=== PATIENT | female | born 1970 | race Caucasian/White ===

== ENCOUNTER 2019-11-01 22:48 | Emergency (ER) | payer OTHER ==
--- NOTE | 2019-11-01 22:52 | ERPHSYRPT ---
- History of Present Illness Time Seen by Provider: 11/01/19 22:52 Source: patient Exam Limitations: no limitations Physician History: 48 y/o white female with h/o generalized body aches, fibromyalgia, anxiety, and hypothyroid. pt was seen by pcp 4 weeks ago. sent to see a protozoologist 2 weeks ago and found to have bp 140s/101. she has been watching and bp has been going up. no h/o htn. pt stepped on something today and now has right foot pain. pt has h/o stress fx in feet. two concerns for pt, elevated bp and right foot pain. pt has vicodin at home for chronic pain issues. Timing/Duration: week(s) (2) Severity: moderate Modifying Factors: Improves With: movement Associated Symptoms: denies symptoms, No chest pain, No headaches Allergies/Adverse Reactions: alprazolam [From Xanax] Allergy (Verified 11/01/19 23:16) iron Allergy (Verified 11/01/19 23:16) Penicillins Allergy (Verified 11/01/19 23:16) Home Medications: Levothyroxine Sodium 125 mcg PO DAILY 01/19/15 [History] Omeprazole 40 mg PO DAILY 01/19/15 [History] Escitalopram Oxalate [Lexapro] 20 mg PO DAILY 11/01/19 [History] Hx Tetanus, Diphtheria Vaccination/Date Given: Yes (unknown) Hx Influenza Vaccination/Date Given: Yes Hx Pneumococcal Vaccination/Date Given: No - Review of Systems Constitutional: No Symptoms Eyes: No Symptoms Ears, Nose, & Throat: No Symptoms Respiratory: No Symptoms Cardiac: No Symptoms Abdominal/Gastrointestinal: No Symptoms Genitourinary Symptoms: No Symptoms Musculoskeletal: Arthralgias, Injury (right foot), Myalgias Skin: No Symptoms Neurological: No Symptoms Psychological: No Symptoms Endocrine: No Symptoms Hematologic/Lymphatic: No Symptoms Immunological/Allergic: No Symptoms All Other Systems: Reviewed and Negative - Past Medical History Pertinent Past Medical History: Yes Neurological History: Migraines ENT History: No Pertinent History Cardiac History: Other Respiratory History: Asthma Endocrine Medical History: Other Musculoskeletal History: Fibromyalgia GI Medical History: GERD, Irritable Bowel History: No Pertinent History Psycho-Social History: Anxiety, Depression Female Reproductive Disorders: Menstrual Problems Other Medical History: thyroid cancer - Past Surgical History Past Surgical History: Yes Neuro Surgical History: No Pertinent History Cardiac: No Pertinent History Respiratory: No Pertinent History Gastrointestinal: Cholecystectomy Genitourinary: No Pertinent History Musculoskeletal: No Pertinent History Female Surgical History: Tubal Ligation Other Surgical History: tyroidectomy - Social History Smoking Status: Never smoker Exposure to second hand smoke: No Drug Use: marijuana Patient Lives Alone: No - Nursing Vital Signs Nursing Vital Signs: Initial Vital Signs Temperature 98.1 F 11/01/19 23:00 Pulse Rate 104 H 11/01/19 23:00 Respiratory Rate 16 11/01/19 23:00 Blood Pressure 173/118 11/01/19 23:00 O2 Sat by Pulse Oximetry 96 11/01/19 23:00 Pain Scale Pain Intensity [Right Foot] 7 Pain Intensity 7 - Physical Exam General Appearance: no apparent distress, alert, anxiety Eye Exam: PERRL/EOMI, eyes nml inspection Ears, Nose, Throat Exam: normal ENT inspection, moist mucous membranes Neck Exam: normal inspection, non-tender, supple, full range of motion Respiratory Exam: normal breath sounds, lungs clear, airway intact, No chest tenderness, No respiratory distress Cardiovascular Exam: regular rate/rhythm, normal heart sounds, normal peripheral pulses Gastrointestinal/Abdomen Exam: soft, normal bowel sounds, tenderness Pelvic Exam: not done Rectal Exam: not done Extremity Exam: normal inspection, normal range of motion, pelvis stable Neurologic Exam: alert, oriented x 3, cooperative Skin Exam: normal color, warm, dry Lymphatic Exam: No adenopathy SpO2 Interpretation: normal O2 Delivery: Room Air Ordered Tests: Active Orders 24 hr Category Date Time Status IV Insertion STAT Care 11/01/19 23:11 Active Pulse Oximetry (ED) STAT Care 11/01/19 23:11 Active FOOT (MINIMUM 3 VIEWS) Stat Exams 11/01/19 23:10 Taken BMP Stat Lab 11/01/19 23:11 Completed CBC W DIFF Stat Lab 11/01/19 23:11 Completed Medication Summary Discontinued Medications Generic Name Dose Route Start Last Admin Trade Name Freq PRN Reason Stop Dose Admin Enalaprilat 0.625 mg 11/01/19 23:11 11/01/19 23:26 Vasotec I.V. 2.5 Mg IV 11/01/19 23:12 0.625 mg STAT ONE Administration Enalaprilat Confirm 11/01/19 23:24 Vasotec I.V. 2.5 Mg Administered 11/01/19 23:25 Dose 2.5 mg IV .STK-MED ONE Lab/Rad Data: Laboratory Result Diagrams 11/01/19 23:11 11/01/19 23:11 Laboratory Results 11/01/19 11/01/19 Range/Units 23:11 23:11 WBC 9.6 (4.0-10.5) K/mm3 RBC 4.34 (4.1-5.4) M/mm3 Hgb 13.7 (12.0-16.0) gm/dl Hct 39.7 (35-47) % MCV 91.5 (78-100) fl MCH 31.6 (26-32) pg MCHC 34.5 (32-36) g/dl RDW 12.2 (11.5-14.0) % Plt Count 250 (150-450) K/mm3 MPV 11.5 H (6-9.5) fl Gran % 64.7 (36.0-66.0) % Eos # (Auto) 0.23 (0-0.5) Absolute Lymphs (auto) 2.35 (1.0-4.6) Absolute Monos (auto) 0.77 (0.0-1.3) Lymphocytes % 24.6 (24.0-44.0) % Monocytes % 8.1 (0.0-12.0) % Eosinophils % 2.4 (0.00-5.0) % Basophils % 0.2 (0.0-0.4) % Absolute Granulocytes 6.18 (1.4-6.9) Basophils # 0.02 (0-0.4) Sodium 141 (137-145) mmol/L Potassium 3.5 (3.5-5.1) mmol/L Chloride 103 (98-107) mmol/L Carbon Dioxide 29 (22-30) mmol/L Anion Gap 13.1 (5-15) MEQ/L BUN 10 (7-17) mg/dL Creatinine 0.68 (0.52-1.04) mg/dL Estimated GFR > 60.0 ML/MIN Glucose 120 H (74-106) mg/dL Calcium 9.5 (8.4-10.2) mg/dL - Progress Progress: unchanged Progress Note: 11/02/19 00:09 right foot xray-no acute fx or dislocation Counseled pt/family regarding: lab results, diagnosis, need for follow-up, rad results - Departure Departure Disposition: Home Clinical Impression: Foot pain, Hypertension Condition: Stable Critical Care Time: No Referrals: CHAPARRO DELGADO MD [Primary Care Provider] - Additional Instructions: use your narcotic pain medicine at home as prescribed. follow up with your primary doctor for high blood pressure issues as well as pain control issues. follow up with pain specialist for pain control issues. Prescriptions: Hydrochlorothiazide 25 mg [hydroDIURIL 25 MG] 25 mg PO DAILY #10 tablet
[2019-11-01] MEDS ORDERED: VASOTEC I.V. 2.5 MG IV ONE ×2 (23:11→23:24)
[2019-11-01 23:40] LABS: Absolute Neutrophil Ct (ANC) 6.18 (1.4-6.9); BASOPHIL % 0.2 % (0.0-0.4); Basophil (Absolute #) 0.02 (0-0.4); Eosinophil % 2.4 % (0.00-5.0); Eosinophil (Absolute #) 0.23 (0-0.5); Hematocrit 39.7 % (35-47); Hemoglobin 13.7 gm/dl (12.0-16.0); Lymphocyte (Absolute #) 2.35 (1.0-4.6); Lymphocytes % 24.6 % (24.0-44.0); Mean Cell Volume 91.5 fl (78-100); Mean Corpuscular Hemoglobin 31.6 pg (26-32); Mean Corpuscular Hgb Concent. 34.5 g/dl (32-36); Mean Platelet Volume 11.5 fl (6-9.5); Monocyte (Absolute #) 0.77 (0.0-1.3); Monocytes % 8.1 % (0.0-12.0); Neutrophil % 64.7 % (36.0-66.0); Platelet Count 250 K/mm3 (150-450); Red Blood Count 4.34 M/mm3 (4.1-5.4); Red Cell Distribution Width 12.2 % (11.5-14.0); White Blood Count 9.6 K/mm3 (4.0-10.5)
[2019-11-01 23:52] LABS: ANION GAP 13.1 MEQ/L (5-15); BLOOD UREA NITROGEN 10 mg/dL (7-17); CHLORIDE 103 mmol/L (98-107); Calcium 9.5 mg/dL (8.4-10.2); Carbon Dioxide 29 mmol/L (22-30); Creatinine 1 0.68 mg/dL (0.52-1.04); Glucose 120 mg/dL (74-106); Potassium 3.5 mmol/L (3.5-5.1); SODIUM 141 mmol/L (137-145)
[2019-11-02 00:09] VITALS: BP 140/91; PULSE 91; O2SAT 96
--- NOTE | 2019-11-02 09:18 | XRAY ---
Indication: 3rd-5th MTP pain. Comparison: None 3 nonweightbearing views of the right foot demonstrates small navicular accessory ossicle. No other bony, articular, or soft tissue abnormalities.
== END 2019-11-02 00:28 | disposition home or self-care (01) ==
LOC: ED 22:48
DX: M79.671 Pain in right foot (principal); Z79.891 Long term (current) use of opiate analgesic; G89.29 Other chronic pain; M79.7 Fibromyalgia; E03.9 Hypothyroidism, unspecified; R03.0 Elevated blood-pressure reading, without diagnosis of hypertension
CPT/HCPCS: 36000; 36415; 73630; 80048; 85025; 94760; 96374; 99284

== ENCOUNTER 2020-09-28 23:38 | Emergency (ER) | payer OTHER ==
--- NOTE | 2020-09-28 23:44 | ERPHSYRPT ---
- History of Present Illness Time Seen by Provider: 09/28/20 23:44 Source: patient Exam Limitations: no limitations Physician History: This is a 49-year-old white female who states that she has a very itchy right inner ear. She has had Q-tip cotton stuck in it before. There is a Q-tip cotton stuck in right ear canal for approximately 2 to 3 days per her report. In addition, she has left upper molar pain. Patient has been unable to retrieve the Q-tip on her own. Patient has taken Keflex before without any problems. Timing/Duration: gradual onset Severity: mild ENT Location: ear (R) Associated Symptoms: ear pain (R), tooth pain (Left upper molar) Allergies/Adverse Reactions: alprazolam [From Xanax] Allergy (Verified 09/28/20 23:55) iron Allergy (Verified 09/28/20 23:55) Penicillins Allergy (Verified 09/28/20 23:55) erythromycin base Adverse Reaction (Verified 09/28/20 23:55) nausea Home Medications: Levothyroxine Sodium 125 mcg PO DAILY 01/19/15 [History] Omeprazole 40 mg PO DAILY 01/19/15 [History] Escitalopram Oxalate [Lexapro] 20 mg PO DAILY 11/01/19 [History] Gabapentin [Neurontin] 100 mg PO BID 09/29/20 [History] Indomethacin 25 mg [Indocin 25 MG] 25 mg PO TID 09/29/20 [History] Naproxen 500 mg [Naprosyn 500 MG] 500 mg PO BID 09/29/20 [History] Sumatriptan Succinate 25 mg [Imitrex 25 MG] 25 mg PO DAILY PRN PRN 09/29/20 [History] Hx Tetanus, Diphtheria Vaccination/Date Given: Yes (unknown) Hx Influenza Vaccination/Date Given: Yes Hx Pneumococcal Vaccination/Date Given: No Travel Risk - International Travel Have you traveled outside of the country in past 3 weeks: No - Coronavirus Screening Are you exhibiting any of the following symptoms?: No Close contact with a COVID-19 positive Pt in past 14-21 Days: No - Review of Systems Constitutional: No Symptoms Eyes: No Symptoms Ears, Nose, & Throat: Ear Pain (right) Respiratory: No Symptoms Cardiac: No Symptoms Abdominal/Gastrointestinal: No Symptoms Genitourinary Symptoms: No Symptoms Musculoskeletal: No Symptoms Skin: No Symptoms Neurological: No Symptoms Psychological: No Symptoms Endocrine: No Symptoms Hematologic/Lymphatic: No Symptoms Immunological/Allergic: No Symptoms All Other Systems: Reviewed and Negative - Past Medical History Pertinent Past Medical History: Yes Neurological History: Migraines ENT History: No Pertinent History Cardiac History: Other Respiratory History: Asthma Endocrine Medical History: Other Musculoskeletal History: Fibromyalgia GI Medical History: GERD, Irritable Bowel History: No Pertinent History Psycho-Social History: Anxiety, Depression Female Reproductive Disorders: Menstrual Problems Other Medical History: thyroid cancer - Past Surgical History Past Surgical History: Yes Neuro Surgical History: No Pertinent History Cardiac: No Pertinent History Respiratory: No Pertinent History Gastrointestinal: Cholecystectomy Genitourinary: No Pertinent History Musculoskeletal: No Pertinent History Female Surgical History: Tubal Ligation Other Surgical History: tyroidectomy - Social History Smoking Status: Never smoker Exposure to second hand smoke: No Drug Use: marijuana Patient Lives Alone: No - Nursing Vital Signs Nursing Vital Signs: Initial Vital Signs Temperature 98.5 F 09/28/20 23:39 Pulse Rate 72 09/28/20 23:39 Respiratory Rate 16 09/28/20 23:39 Blood Pressure 173/98 09/28/20 23:39 O2 Sat by Pulse Oximetry 98 09/28/20 23:39 Pain Scale Pain Intensity 6 - Physical Exam General Appearance: no apparent distress, alert, anxiety Eye Exam: bilateral eye: normal inspection, PERRL, EOMI Ear Exam: right ear: erythema, foreign body, tenderness, left ear: auricle nor mal, canal normal, TM normal Nasal Exam: normal inspection Throat Exam: normal, pharynx normal, dental tenderness (Left upper molar), moist mucus membranes Neck Exam: normal inspection, non-tender, supple, full range of motion, trachea midline Cardiovascular/Respiratory Exam: chest non-tender, no respiratory distress Abdominal Exam: non-tender Neurologic Exam: alert, oriented x 3, cooperative, chrome cleaner II-XII nml as tested, normal mood/affect, nml cerebellar function, nml station & gait, sensation nml Skin Exam: normal color, warm, dry SpO2 Interpretation: normal O2 Delivery: Room Air Procedures - Additional Procedures Progress: Procedure note: Attempted to remove the visible foreign body (tip of cotton Q- tip) from the right ear canal. The ear canal is very swollen and I was unable to remove this safely. Therefore we attempted to irrigate the ear canal out and this did not help and retrieving the Q-tip. - Course Nursing assessment & vital signs reviewed: Yes Ordered Tests: Medication Summary Discontinued Medications Generic Name Dose Route Start Last Admin Trade Name Vira PRN Reason Stop Dose Admin Hydrocodone Bitart/Acetaminophen 1 tab 09/29/20 00:47 Colon 5/325 Mg PO 09/29/20 00:48 STAT ONE Ceftriaxone Sodium 1,000 mg 09/29/20 00:45 Rocephin 1000 Mg Inj IM 09/29/20 00:46 STAT ONE Methylprednisolone Sodium Succinate 125 mg 09/29/20 00:46 Solu-Medrol 125 Mg IM 09/29/20 00:47 STAT ONE - Progress Progress: unchanged Counseled pt/family regarding: diagnosis, need for follow-up - Departure Departure Disposition: Home Clinical Impression: Acute foreign body of right ear canal Condition: Stable Critical Care Time: No Referrals: CHAPARRO DELGADO MD [Primary Care Provider] - Additional Instructions: Follow-up with emergency department today or tomorrow that has ear nose and throat coverage. Take the antibiotic as prescribed. Prescriptions: Cephalexin Mh 500 mg [Keflex 500 mg] 500 mg PO TID #21 capsule
[2020-09-29] MEDS ORDERED: Rocephin 1000 MG INJ IM ONE (00:45)
[2020-09-29] MEDS ORDERED: solu-MEDROL 125 MG IM ONE (00:46)
[2020-09-29] MEDS ORDERED: NORCO 5/325 MG PO ONE (00:47)
[2020-09-29] MEDS ORDERED: NORCO 5/325 MG ONE (00:56)
[2020-09-29] MEDS ORDERED: solu-MEDROL 125 MG ONE (00:57)
[2020-09-29] MEDS ORDERED: Rocephin 1000 MG INJ ONE (00:57)
[2020-09-29] MEDS ORDERED: XYLOCAINE 1% HCL 20 ML MDV ONE (00:58)
[2020-09-29 01:37] VITALS: BP 164/80; PULSE 88; O2SAT 97
== END 2020-09-29 01:30 | disposition home or self-care (01) ==
LOC: ED 23:38
DX: T16.1XXA Foreign body in right ear, initial encounter (principal)
CPT/HCPCS: 69200; 96372; 99284; J0696; J2930; A9270-GY

== ENCOUNTER 2020-11-07 12:15 | Day surgery (SDC) | payer OTHER ==
[2013-08-24 13:25] VITALS: BP 132/83
[2020-11-07] MEDS ORDERED: Sodium Chloride 0.9(Preservative Free) 10 ML IJ ONE (12:16)
[2020-11-07] MEDS ORDERED: Xylocaine 1% Vial 30 ML PF IJ ONE (12:16)
[2020-11-07] MEDS ORDERED: Depo-Medrol 40 MG/ML IM ONE (12:16)
[2020-11-07] MEDS ORDERED: Ketamine HCl 50 MG/ML ONE (14:04)
[2020-11-07] MEDS ORDERED: DIPRIVAN 200 MG/20 ML IV ONE (14:04)
--- NOTE | 2020-11-07 15:16 | XRAY ---
Indication: Lumbar PRINCESS. Intraoperative fluoroscopy was provided for 22 seconds. 2 digital spot images submitted for interpretation demonstrates midline posterior needle tip projecting just posterior to the L4-L5 interspace. Small amount of contrast injected for needle tip placement. Correlate with intraoperative findings/report.
[2020-11-07] MEDS ORDERED: Lactated Ringers 1,000 ML IV ONE (15:30)
--- NOTE | 2020-11-07 17:18 | XRAY ---
22 seconds fluoroscopy time in surgery for lumbar PRINCESS.
== END 2020-11-07 14:31 | disposition home or self-care (01) ==
LOC: SDC-PAIN 12:15
PROVIDERS: ATTEND Psychiatry & Neurology Pain Medicine
DX: M54.16 Radiculopathy, lumbar region (principal); J45.909 Unspecified asthma, uncomplicated; D64.9 Anemia, unspecified; K21.9 Gastro-esophageal reflux disease without esophagitis; M79.7 Fibromyalgia; Z79.899 Other long term (current) drug therapy
CPT/HCPCS: 62323; 72100; 77003; J1030; J2001; J2704; Q9966

== ENCOUNTER 2021-04-24 15:19 | Day surgery (SDC) | payer OTHER ==
[2013-08-24 13:25] VITALS: BP 132/83
[2021-04-24] MEDS ORDERED: Depo-Medrol 40 MG/ML IM ONE (15:20)
[2021-04-24] MEDS ORDERED: BUPIVACAINE 0.5% VIAL IJ ONE (15:20)
[2021-04-24] MEDS ORDERED: Decadron 4 MG INJ IV ONE (15:20)
[2021-04-24] MEDS ORDERED: Sodium Chloride 0.9(Preservative Free) 10 ML IJ ONE (15:20)
[2021-04-24] MEDS ORDERED: Xylocaine 1% Vial 30 ML PF IJ ONE (15:20)
[2021-04-24] MEDS ORDERED: Lactated Ringers 1,000 ML IV ONE (16:22)
[2021-04-24] MEDS ORDERED: DIPRIVAN 200 MG/20 ML IV ONE (17:07)
--- NOTE | 2021-04-24 17:41 | XRAY ---
9 seconds of fluoroscopy was used in surgery for a left SI injection.
--- NOTE | 2021-04-24 17:41 | XRAY ---
Indication: Left SI joint injection. Intraoperative fluoroscopy provided for 9 seconds. 2 digital spot images submitted for interpretation demonstrates posterior needle tip projecting over the inferior left SI joint. Correlate with intraoperative findings/report.
== END 2021-04-24 17:36 | disposition home or self-care (01) ==
LOC: SDC-PAIN 15:19
PROVIDERS: ATTEND Psychiatry & Neurology Pain Medicine
DX: M46.1 Sacroiliitis, not elsewhere classified (principal); M65.841 Other synovitis and tenosynovitis, right hand; J45.909 Unspecified asthma, uncomplicated; D64.9 Anemia, unspecified; C73 Malignant neoplasm of thyroid gland; G43.909 Migraine, unspecified, not intractable, without status migrainosus; K21.9 Gastro-esophageal reflux disease without esophagitis; M79.7 Fibromyalgia; M19.90 Unspecified osteoarthritis, unspecified site; Z79.899 Other long term (current) drug therapy
CPT/HCPCS: 20550; 27096; 72020; 77002; G0260; J1030; J1100; J2001; J2704

== ENCOUNTER 2021-05-09 22:11 | Emergency (ER) | payer OTHER ==
--- NOTE | 2021-05-09 22:49 | ERPHSYRPT ---
- History of Present Illness Time Seen by Provider: 05/09/21 22:30 Source: patient Exam Limitations: no limitations Patient Subjective Stated Complaint: "I have family that are COVID + and I've been feeling bad." Triage Nursing Assessment: Patient reported recent exposure to individuals with COVID and experiencing sinus congestion, headache, and cough. Reported tightness around her collar bone and between her scapulas. Denied chest pain, shortness of breath, dizziness, or visual/auditory disturbances. Pupils 3mm bilateral. Oral mucosa pink/moist. Neck supple without lymphadenopathy. Symmetrical chest expansion. heart tones S1/S2 regular rate and rhythm. Lungs vesicular with adequate airflow and without adventitious lung sounds. Peripheral pulses +3 bilateral. Gait steady without complications. Physician History: Patient is a 50-year-old female presents to our ED with complaints of generalized body aches and occasional dry cough nasal congestion. Patient concerned that she may have Covid. Patient states she was exposed to Covid over the past couple days. Patient shared an ice cream with a family member who is Covid positive. No other symptoms. No nausea or vomiting. No diarrhea no diaphoresis no rash. No shortness of breath. No chest pain. Patient states that she felt worse earlier which is what prompted her to come in here. Patient symptoms have significantly improved. Patient states she feels fine at this time. Patient requesting outpatient Covid test. She does not want further testing done at this time. Patient will self quarantine. Timing/Duration: today Severity: mild Modifying Factors: Improves With: nothing Associated Symptoms: denies symptoms, No heartburn, No cough, No chest pain, No fever, No loss of appetite, No syncope, No weakness Allergies/Adverse Reactions: alprazolam [From Xanax] Allergy (Verified 05/09/21 22:18) iron Allergy (Verified 05/09/21 22:18) Penicillins Allergy (Verified 05/09/21 22:18) erythromycin base Adverse Reaction (Verified 05/09/21 22:18) nausea Home Medications: Levothyroxine Sodium 88 mcg PO DAILY 01/19/15 [History] Omeprazole 40 mg PO DAILY 01/19/15 [History] Escitalopram Oxalate [Lexapro] 20 mg PO DAILY 11/01/19 [History] Gabapentin [Neurontin] 300 mg PO BID 09/29/20 [History] Indomethacin 25 mg [Indocin 25 MG] 25 mg PO TID PRN 09/29/20 [History] Sumatriptan Succinate 25 mg [Imitrex 25 MG] 25 mg PO DAILY PRN PRN 09/29/20 [History] Gabapentin 2 tab PO BID 05/09/21 [History] Lisinopril/Hydrochlorothiazide [Lisinopril-Hctz 10-12.5 mg Tab] 1 tab PO DAILY 05/09/21 [History] Hx Tetanus, Diphtheria Vaccination/Date Given: Yes (unknown) Hx Influenza Vaccination/Date Given: Yes Hx Pneumococcal Vaccination/Date Given: No Travel Risk - International Travel Have you traveled outside of the country in past 3 weeks: No - Coronavirus Screening Are you exhibiting any of the following symptoms?: Yes Symptoms: Fever, Cough: New Onset, Vomiting/Diarrhea, Headaches/Body Aches/Fatigue Close contact with a COVID-19 positive Pt in past 14-21 Days: Yes - Vaccine Status Have you recieved a Covid-19 vaccination: No - Review of Systems Constitutional: No Symptoms, No Fever, No Chills Eyes: No Symptoms Ears, Nose, & Throat: No Symptoms Respiratory: No Symptoms, No Cough, No Dyspnea Cardiac: No Symptoms, No Chest Pain, No Edema, No Syncope Abdominal/Gastrointestinal: No Symptoms, No Abdominal Pain, No Nausea, No Vomiting, No Diarrhea Genitourinary Symptoms: No Symptoms, No Dysuria Musculoskeletal: No Symptoms, No Back Pain, No Neck Pain Skin: No Symptoms, No Rash Neurological: No Symptoms, No Dizziness, No Focal Weakness, No Sensory Changes Psychological: No Symptoms Endocrine: No Symptoms Hematologic/Lymphatic: No Symptoms Immunological/Allergic: No Symptoms All Other Systems: Reviewed and Negative - Past Medical History Pertinent Past Medical History: Yes Neurological History: Migraines ENT History: No Pertinent History Cardiac History: Other Respiratory History: Asthma Endocrine Medical History: Other Musculoskeletal History: Fibromyalgia GI Medical History: GERD, Irritable Bowel History: No Pertinent History Psycho-Social History: Anxiety, Depression, Other Female Reproductive Disorders: Menstrual Problems Other Medical History: Mitral valve prolapse, thyroid cancer, PTSD - Past Surgical History Past Surgical History: Yes Neuro Surgical History: No Pertinent History Cardiac: No Pertinent History Respiratory: No Pertinent History Gastrointestinal: Cholecystectomy Genitourinary: No Pertinent History Musculoskeletal: No Pertinent History Female Surgical History: Hysterectomy, Tubal Ligation Other Surgical History: tyroidectomy - Social History Smoking Status: Never smoker Exposure to second hand smoke: No Drug Use: marijuana Patient Lives Alone: No - Female History Hx Now: No - Nursing Vital Signs Nursing Vital Signs: Initial Vital Signs Temperature 98.7 F 05/09/21 22:11 Pulse Rate 83 05/09/21 22:11 Respiratory Rate 18 05/09/21 22:11 Blood Pressure 127/80 05/09/21 22:11 O2 Sat by Pulse Oximetry 99 05/09/21 22:11 Pain Scale Pain Intensity 5 - Physical Exam General Appearance: no apparent distress, alert Eye Exam: PERRL/EOMI, eyes nml inspection Ears, Nose, Throat Exam: normal ENT inspection, TMs normal, pharynx normal, mois t mucous membranes Neck Exam: normal inspection, non-tender, supple, full range of motion Respiratory Exam: normal breath sounds, lungs clear, airway intact, No respiratory distress Cardiovascular Exam: regular rate/rhythm, normal heart sounds, normal peripheral pulses Gastrointestinal/Abdomen Exam: soft, normal bowel sounds, No tenderness, No mass Back Exam: normal inspection, normal range of motion, No CVA tenderness, No vertebral tenderness Extremity Exam: normal inspection, normal range of motion, pelvis stable Neurologic Exam: alert, oriented x 3, cooperative, normal mood/affect, sensation nml, No motor deficits Skin Exam: normal color, warm, dry, No rash Lymphatic Exam: No adenopathy SpO2 Interpretation: normal SpO2: 99 O2 Delivery: Room Air - Course Nursing assessment & vital signs reviewed: Yes - Progress Progress: improved Progress Note: Patient states she feels much better now versus when she decided to come to the ED. Patient states "I overreacted". Physical exam unremarkable. Vitals stable. Patient is not hypoxic or tachypneic. Lungs are clear. Oral mucosa nasopharyngeal exam essentially unremarkable. Patient requesting outpatient Covid test we will perform this prior to her discharge. Patient agrees to follow-up with her primary care doctor within 48 hours for reevaluation. Patient is afebrile. She did not take any antipyretics today or prior to a rrival. Portions of this note were created with voice recognition technology. There may be grammatical, spelling, punctuation or sound alike errors 05/09/21 22:57 Counseled pt/family regarding: diagnosis, need for follow-up - Departure Departure Disposition: Home Clinical Impression: Viral syndrome, Exposure to COVID-19 virus Condition: Stable Critical Care Time: No Referrals: CHAPARRO DELGADO MD [Primary Care Provider] - Additional Instructions: Discharge/Care Plan TIFFANY KUMARI was seen on 05/09/21 in the Emergency Room. The patient was counseled regarding Diagnosis,Lab results, Imaging studies, need for follow up and when to return to the Emergency Room. Prescriptions given: Discharge Note I have spoken with the patient and/or caregivers. I have explained the patient's condition, diagnosis and treatment plan based on the information available to me at this time. I have answered the patient's and/or caregiver's questions and addressed any concerns. The patient and/or caregivers have as good understanding of the patient's diagnosis, condition and treatment plan as can be expected at this point. The vital signs have been stable. The patient's condition is stable and appropriate for discharge from the emergency department. The patient will pursue further outpatient evaluation with the primary care physician or other designated or consulting physician as outlined in the discharge instructions. The patient and/or caregivers are agreeable to this plan of care and follow-up instructions have been explained in detail. The patient and/or caregivers have received these instruction. The patient/and or caregivers are aware that any significant change in condition or worsening of symptoms should prompt an immediate return to this or the closest emergency department or call 911.
[2021-05-09 23:13] VITALS: BP 102/69; PULSE 78; O2SAT 98
== END 2021-05-09 23:35 | disposition home or self-care (01) ==
LOC: ED 22:11
DX: B34.9 Viral infection, unspecified (principal); Z03.818 Encounter for observation for suspected exposure to other biological agents ruled out
CPT/HCPCS: 99283; U0003

== ENCOUNTER 2021-05-22 19:53 | Emergency (ER) | payer OTHER ==
[2021-05-22 20:42] LABS: Absolute Neutrophil Ct (ANC) 2.69 (1.4-6.9); BASOPHIL % 0.4 % (0.0-0.4); Basophil (Absolute #) 0.02 (0-0.4); Eosinophil % 4.3 % (0.00-5.0); Hematocrit 40.4 % (35-47); Hemoglobin 13.3 gm/dl (12.0-16.0); Lymphocyte (Absolute #) 1.13 (1.0-4.6); Lymphocytes % 24.5 % (24.0-44.0); Mean Cell Volume 95.7 fl (78-100); Mean Corpuscular Hemoglobin 31.5 pg (26-32); Mean Corpuscular Hgb Concent. 32.9 g/dl (32-36); Mean Platelet Volume 10.7 fl (7.5-11.0); Monocyte (Absolute #) 0.57 (0.0-1.3); Monocytes % 12.4 % (0.0-12.0); Neutrophil % 58.4 % (36.0-66.0); Platelet Count 233 K/mm3 (150-450); Red Blood Count 4.22 M/mm3 (4.1-5.4); Red Cell Distribution Width 12.7 % (11.5-14.0); White Blood Count 4.6 K/mm3 (4.0-10.5)
[2021-05-22 20:55] LABS: INFLUENZA A NEGATIVE (NEGATIVE); INFLUENZA B NEGATIVE (NEGATIVE)
[2021-05-22 20:57] LABS: ALBUMIN 4.3 g/dL (3.5-5.0); ALKALINE PHOSPHATASE 63 U/L (38-126); ANION GAP 11.9 MEQ/L (5-15); BLOOD UREA NITROGEN 11 mg/dL (7-17); CHLORIDE 101 mmol/L (98-107); Calcium 9.1 mg/dL (8.4-10.2); Carbon Dioxide 29 mmol/L (22-30); Creatinine 1 0.69 mg/dL (0.52-1.04); EST GLOMERULAR FILTRATION RATE > 60.0 ML/MIN; Glucose 130 mg/dL (74-106); Potassium 3.1 mmol/L (3.5-5.1); SGOT/AST 32 U/L (14-36); SGPT/ALT 22 U/L (0-35); SODIUM 139 mmol/L (137-145); Total Protein 7.4 g/dL (6.3-8.2)
[2021-05-22] MEDS ORDERED: Klor Con 10 MEQ PO ONE ×2 (21:03)
[2021-05-22 21:09] VITALS: O2SAT 96
[2021-05-22 21:44] LABS: Appearance CLEAR (CLEAR); Bilirubin NEGATIVE (NEGATIVE); Blood SMALL Ery/ul (0-5); Epithelial Cells RARE /HPF (FEW); Glucose NEGATIVE (NEGATIVE); Ketones NEGATIVE (NEGATIVE); Leukocyte Esterase SMALL (NEGATIVE); Mucus SLIGHT /HPF (NEGATIVE); Nitrite NEGATIVE (NEGATIVE); Protein,Urine Dip NEGATIVE (Negative); RBC 0-2 /HPF (0-2); Specific Gravity 1.015 (1.005-1.025); Urobilinogen NEGATIVE mg/dL (0-1); WBC 0-2 /HPF (0-5)
[2021-05-22] MEDS ORDERED: DELTASONE 20 MG PO ONE (22:14)
--- NOTE | 2021-05-22 22:18 | ERPHSYRPT ---
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 I was dx with uti and bilat ear infections on Thursday and I'm take cipro for those. I got tested for Covid 2 weeks ago. Triage Nursing Assessment: pt c/o headache, head cold, runny nose, and cough with thick yellow-white prod sputum x1 week and just isn't getting any better. Pt c/o back pain and lower abd pain but is currently being treated with Cipro for UTI and bilat ear infections. Pt states, "my ears feel clogged up". Lungs clear ant/post bilat Physician History: 50 years old female presented in the ER with flulike symptoms. Patient reports cough congestion, nasal stuffiness, off-and-on headache, sore throat going on for the last 10 days, was evaluated at primary care office recently and had some suprapubic discomfort and urine was positive for UTI and is currently on Cipro but her symptoms does not seem to be improving. She is complaining of g eneralized body ache fatigue and tiredness. Denies any nausea or vomiting. She was tested for Covid 2 weeks ago which was negative. Timing/Duration: day(s) (10), gradual onset, worse Cough Quality/Degree: moderate, productive cough, sputum Modifying Factors: Worsens With: coughing Associated Symptoms: chest pain/soreness, cough, earache, facial pain, headache, muscle aches, nasal congestion, nasal drainage, sinus infection, sore throat Allergies/Adverse Reactions: alprazolam [From Xanax] Allergy (Verified 05/22/21 20:16) iron Allergy (Verified 05/22/21 20:16) Penicillins Allergy (Verified 05/22/21 20:16) erythromycin base Adverse Reaction (Verified 05/22/21 20:16) nausea Home Medications: Levothyroxine Sodium 88 mcg PO DAILY 01/19/15 [History] Omeprazole 40 mg PO DAILY 01/19/15 [History] Escitalopram Oxalate [Lexapro] 20 mg PO DAILY 11/01/19 [History] Gabapentin [Neurontin] 600 mg PO BID 09/29/20 [History] Indomethacin 25 mg [Indocin 25 MG] 25 mg PO TID PRN PRN 09/29/20 [History] Sumatriptan Succinate 25 mg [Imitrex 25 MG] 25 mg PO DAILY PRN PRN 09/29/20 [History] Lisinopril/Hydrochlorothiazide [Lisinopril-Hctz 10-12.5 mg Tab] 1 tab PO DAILY 05/09/21 [History] Ciprofloxacin [Cipro 500 MG] 500 mg PO BID 05/22/21 [History] Hx Tetanus, Diphtheria Vaccination/Date Given: Yes Hx Influenza Vaccination/Date Given: No Hx Pneumococcal Vaccination/Date Given: No Immunizations Up to Date: Yes Travel Risk - International Travel Have you traveled outside of the country in past 3 weeks: No - Coronavirus Screening Are you exhibiting any of the following symptoms?: Yes Symptoms: Fever, Cough: New Onset, Shortness of Breath, Vomiting/Diarrhea, Headaches/Body Aches/Fatigue Close contact with a COVID-19 positive Pt in past 14-21 Days: Yes - Vaccine Status Have you recieved a Covid-19 vaccination: No - Review of Systems Constitutional: Chills, Fatigue, Weakness Eyes: No Symptoms Ears, Nose, & Throat: Nose Congestion, Sinus Drainage, Throat Pain, Throat Swelling Respiratory: Cough Cardiac: Chest Pain Genitourinary Symptoms: Dysuria Musculoskeletal: Myalgias Skin: No Symptoms Neurological: Headache Psychological: No Symptoms Endocrine: No Symptoms Hematologic/Lymphatic: No Symptoms Immunological/Allergic: No Symptoms - Past Medical History Pertinent Past Medical History: Yes Neurological History: Migraines ENT History: No Pertinent History Cardiac History: High Cholesterol, Hypertension, Other Respiratory History: Asthma, Bronchitis Endocrine Medical History: Other Musculoskeletal History: Fibromyalgia GI Medical History: GERD, Irritable Bowel History: No Pertinent History Psycho-Social History: Anxiety, Depression, Other Female Reproductive Disorders: Menstrual Problems Other Medical History: Mitral valve prolapse, thyroid cancer, PTSD - Past Surgical History Past Surgical History: Yes Neuro Surgical History: No Pertinent History Cardiac: No Pertinent History Respiratory: No Pertinent History Gastrointestinal: Cholecystectomy Genitourinary: No Pertinent History Musculoskeletal: No Pertinent History Female Surgical History: Hysterectomy, Tubal Ligation Other Surgical History: tyroidectomy - Social History Smoking Status: Never smoker Exposure to second hand smoke: No Drug Use: marijuana Patient Lives Alone: Yes - Female History Hx Now: (unkn) - Nursing Vital Signs Nursing Vital Signs: Initial Vital Signs Temperature 99.1 F 05/22/21 19:54 Pulse Rate 94 H 05/22/21 19:54 Respiratory Rate 18 05/22/21 19:54 Blood Pressure 116/86 05/22/21 19:54 O2 Sat by Pulse Oximetry 97 05/22/21 19:54 Pain Scale Pain Intensity 7 - Physical Exam General Appearance: no apparent distress, alert, anxiety Eye Exam: PERRL/EOMI, eyes nml inspection Ears, Nose, Throat Exam: moist mucous membranes, pharyngeal erythema, other (Psoriasis scaling in the external ear/canal without any discharge.) Neck Exam: normal inspection, non-tender, supple, full range of motion Respiratory Exam: normal breath sounds, lungs clear Cardiovascular Exam: regular rate/rhythm, normal heart sounds Gastrointestinal/Abdomen Exam: soft, normal bowel sounds, No tenderness Back Exam: normal inspection, normal range of motion Extremity Exam: normal inspection, normal range of motion Neurologic Exam: alert, oriented x 3, cooperative, 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, normal mood/affect, nml cerebellar function, nml station & gait, sensation nml, No motor deficits Skin Exam: normal color SpO2 Interpretation: normal SpO2: 96 O2 Delivery: Room Air Ordered Tests: Active Orders 24 hr Category Date Time Status CHEST 1 VIEW (PORTABLE) Stat Exams 05/22/21 20:20 Taken CBC W DIFF Stat Lab 05/22/21 20:37 Completed CMP Stat Lab 05/22/21 20:37 Completed INFLUENZA A+B DEVONTE Stat Lab 05/22/21 20:21 Completed Lactic Acid Stat Lab 05/22/21 20:29 Completed UA W/RFX UR CULTURE Stat Lab 05/22/21 20:42 Completed Medication Summary Discontinued Medications Generic Name Dose Route Start Last Admin Trade Name Freq PRN Reason Stop Dose Admin Potassium Chloride 40 meq 05/22/21 21:03 05/22/21 21:04 Klor Con 10 Meq PO 05/22/21 21:04 40 meq STAT ONE Administration Potassium Chloride Confirm 05/22/21 21:03 Klor Con 10 Meq Administered 05/22/21 21:04 Dose 40 meq PO .STK-MED ONE Prednisone 60 mg 05/22/21 22:14 05/22/21 22:22 Deltasone 20 Mg PO 05/22/21 22:15 60 mg STAT ONE Administration Lab/Rad Data: Laboratory Result Diagrams 05/22/21 20:37 05/22/21 20:37 Laboratory Results 05/22/21 05/22/21 05/22/21 Range/Units 20:42 20:37 20:37 WBC 4.6 (4.0-10.5) K/mm3 RBC 4.22 (4.1-5.4) M/mm3 Hgb 13.3 (12.0-16.0) gm/dl Hct 40.4 (35-47) % MCV 95.7 (78-100) fl MCH 31.5 (26-32) pg MCHC 32.9 (32-36) g/dl RDW 12.7 (11.5-14.0) % Plt Count 233 (150-450) K/mm3 MPV 10.7 (7.5-11.0) fl Gran % 58.4 (36.0-66.0) % Eos # (Auto) 0.20 (0-0.5) Absolute Lymphs (auto) 1.13 (1.0-4.6) Absolute Monos (auto) 0.57 (0.0-1.3) Lymphocytes % 24.5 (24.0-44.0) % Monocytes % 12.4 H (0.0-12.0) % Eosinophils % 4.3 (0.00-5.0) % Basophils % 0.4 (0.0-0.4) % Absolute Granulocytes 2.69 (1.4-6.9) Basophils # 0.02 (0-0.4) Sodium 139 (137-145) mmol/L Potassium 3.1 L (3.5-5.1) mmol/L Chloride 101 (98-107) mmol/L Carbon Dioxide 29 (22-30) mmol/L Anion Gap 11.9 (5-15) MEQ/L BUN 11 (7-17) mg/dL Creatinine 0.69 (0.52-1.04) mg/dL Estimated GFR > 60.0 ML/MIN Glucose 130 H (74-106) mg/dL Lactic Acid (0.4-2.0) Calcium 9.1 (8.4-10.2) mg/dL Total Bilirubin 0.50 (0.2-1.3) mg/dL AST 32 (14-36) U/L ALT 22 (0-35) U/L Alkaline Phosphatase 63 (38-126) U/L Serum Total Protein 7.4 (6.3-8.2) g/dL Albumin 4.3 (3.5-5.0) g/dL Urine Color YELLOW (YELLOW) Urine Appearance CLEAR (CLEAR) Urine pH 7.0 (5-6) Ur Specific [place] 1.015 (1.005-1.025) Urine Protein NEGATIVE (Negative) Urine Ketones NEGATIVE (NEGATIVE) Urine Blood SMALL (0-5) Freddy/ul Urine Nitrite NEGATIVE (NEGATIVE) Urine Bilirubin NEGATIVE (NEGATIVE) Urine Urobilinogen NEGATIVE (0-1) mg/dL Ur Leukocyte Esterase SMALL (NEGATIVE) Urine WBC (Auto) 0-2 (0-5) /HPF Urine RBC (Auto) 0-2 (0-2) /HPF U Epithel Cells (Auto) RARE (FEW) /HPF Urine Bacteria (Auto) NONE (NEGATIVE) /HPF Urine Mucus (Auto) SLIGHT (NEGATIVE) /HPF Urine Culture Reflexed NO (NO) Urine Glucose NEGATIVE (NEGATIVE) mg/dL Influenza Type A Ag (NEGATIVE) Influenza Type B Ag (NEGATIVE) 05/22/21 05/22/21 Range/Units 20:29 20:21 WBC (4.0-10.5) K/mm3 RBC (4.1-5.4) M/mm3 Hgb (12.0-16.0) gm/dl Hct (35-47) % MCV (78-100) fl MCH (26-32) pg MCHC (32-36) g/dl RDW (11.5-14.0) % Plt Count (150-450) K/mm3 MPV (7.5-11.0) fl Gran % (36.0-66.0) % Eos # (Auto) (0-0.5) Absolute Lymphs (auto) (1.0-4.6) Absolute Monos (auto) (0.0-1.3) Lymphocytes % (24.0-44.0) % Monocytes % (0.0-12.0) % Eosinophils % (0.00-5.0) % Basophils % (0.0-0.4) % Absolute Granulocytes (1.4-6.9) Basophils # (0-0.4) Sodium (137-145) mmol/L Potassium (3.5-5.1) mmol/L Chloride (98-107) mmol/L Carbon Dioxide (22-30) mmol/L Anion Gap (5-15) MEQ/L BUN (7-17) mg/dL Creatinine (0.52-1.04) mg/dL Estimated GFR ML/MIN Glucose (74-106) mg/dL Lactic Acid 0.9 (0.4-2.0) Calcium (8.4-10.2) mg/dL Total Bilirubin (0.2-1.3) mg/dL AST (14-36) U/L ALT (0-35) U/L Alkaline Phosphatase (38-126) U/L Serum Total Protein (6.3-8.2) g/dL Albumin (3.5-5.0) g/dL Urine Color (YELLOW) Urine Appearance (CLEAR) Urine pH (5-6) Ur Specific [place] (1.005-1.025) Urine Protein (Negative) Urine Ketones (NEGATIVE) Urine Blood (0-5) Freddy/ul Urine Nitrite (NEGATIVE) Urine Bilirubin (NEGATIVE) Urine Urobilinogen (0-1) mg/dL Ur Leukocyte Esterase (NEGATIVE) Urine WBC (Auto) (0-5) /HPF Urine RBC (Auto) (0-2) /HPF U Epithel Cells (Auto) (FEW) /HPF Urine Bacteria (Auto) (NEGATIVE) /HPF Urine Mucus (Auto) (NEGATIVE) /HPF Urine Culture Reflexed (NO) Urine Glucose (NEGATIVE) mg/dL Influenza Type A Ag NEGATIVE (NEGATIVE) Influenza Type B Ag NEGATIVE (NEGATIVE) - Progress Progress: re-examined Air Movement: good Progress Note: 05/22/21 22:15 50 years old is evaluated for URI symptoms with cough and generalized body aches. She has a normal white count, mildly low potassium but otherwise chemistry profile unremarkable. Negative influenza. Chest x-ray negative for any acute cardiopulmonary findings reviewed by me, official report is pending. I believe patient has viral etiology symptoms, recommended supportive care and will give her prednisone. She has a stable vitals. Discussed signs symptoms of worsening needing return to ER which she seems understanding. Stable for discharge. Blood Culture(s) Obtained: No Antibiotics given: No Counseled pt/family regarding: lab results, diagnosis, need for follow-up, rad results - Departure Departure Disposition: Home Clinical Impression: Viral syndrome Condition: Stable Critical Care Time: No Referrals: CHAPARRO DELGADO MD [Primary Care Provider] - (1-2 days for reevaluation) Instructions: Cough, Adult (DC), Viral Syndrome (DC) Additional Instructions: Drink plenty of fluids. Take Tylenol/ibuprofen as needed. Follow contact/droplet precautions until your COVID-19 test is back. Return to ER for worsening cough, congestion or if develop shortness of breath with fever chills etc. Prescriptions: Prednisone 20 mg [Deltasone 20 mg] 60 mg PO DAILY 5 Days #15 tablet
[2021-05-22] MEDS ORDERED: DELTASONE 20 MG ONE (22:21)
[2021-05-22 22:24] VITALS: BP 127/84; PULSE 80
--- NOTE | 2021-05-23 16:52 | XRAY ---
Exam: AP upright portable chest film from 05/22/2021. Comparison: Two-view chest series from 08/23/2019. Indication: Fever and cough; rule out pneumonia; ear infections, UTI, runny nose. Findings: The film was obtained in a mildly lordotic projection. The heart size and contour are normal. The kirstin and mediastinal structures appear unremarkable. No air space infiltrates, vascular congestion, pneumothorax, or pleural fluid is seen. No acute osseous process is seen. A couple surgical clips are seen within the right upper quadrant suggestive of prior cholecystectomy. Impression: 1. No infiltrates to suggest focal pneumonia or other acute cardiopulmonary disease is seen.
== END 2021-05-22 22:35 | disposition home or self-care (01) ==
LOC: ED 19:53
DX: B34.9 Viral infection, unspecified (principal); I10 Essential (primary) hypertension
CPT/HCPCS: 36415; 71045; 80053; 81001; 83605; 85025; 87400; 99284; U0003; A9270-GY

== ENCOUNTER 2021-07-10 14:06 | Day surgery (SDC) | payer OTHER ==
[2013-08-24 13:25] VITALS: BP 132/83
[2021-07-10] MEDS ORDERED: Sodium Chloride 0.9(Preservative Free) 10 ML IJ ONE (14:07)
[2021-07-10] MEDS ORDERED: BUPIVACAINE 0.5% VIAL IJ ONE (14:07)
[2021-07-10] MEDS ORDERED: Depo-Medrol 40 MG/ML IM ONE (14:07)
== END 2021-07-10 16:40 | disposition home or self-care (01) ==
LOC: SDC-PAIN 14:06
PROVIDERS: ATTEND Psychiatry & Neurology Pain Medicine
DX: Z53.09 Procedure and treatment not carried out because of other contraindication (principal); M54.16 Radiculopathy, lumbar region; Z79.899 Other long term (current) drug therapy
CPT/HCPCS: J1030

== ENCOUNTER 2021-07-24 12:49 | Emergency (ER) | payer OTHER ==
[2021-07-24] MEDS ORDERED: solu-MEDROL 125 MG, Sterile H2O 10 ml 2 ML IM ONE ×2 (13:32)
--- NOTE | 2021-07-24 13:41 | ERPHSYRPT ---
- History of Present Illness Time Seen by Provider: 07/24/21 13:05 Source: patient Exam Limitations: no limitations Patient Subjective Stated Complaint: "My back is hurting bad since last night, I have chronic back issues and I see the pain doctor but I didn't get my last injection. I think I strained it more when I was weed eating yesterday. I also have something going on with my ears, I think I have an infection in my left ear. Also, Dr. Delgado wants my Covid tested because of my ear ache." Triage Nursing Assessment: Pt presents to ER with complaints of lower back pain and ear ache. Pt has hx of chronic back pains. States pain became acute last night and lidocaine patches aren't working. Pt rates pain 9/10 scale and states pain "shoots down legs". Pt is alert and oriented x 3. Respirations are easy and unlabored. Pt also complains of bilateral ear pain, noted a scaley rash noted to bilateral ears. Complains of drainage from left ear, inner ear appears red. Pt denies nausea but stated had diarrhea this morning. Physician History: This is a 50-year-old white female who has acute exacerbation of her chronic low back pain. Patient was doing some yard work yesterday. She missed her last appointment with Dr. Diehl, her pain specialist, for injections in her lower back. She drove herself to the hospital and cannot get a ride home per her report. She also complains of psoriasis out break on bilateral ears and pain in her in her left ear. She is also here to get an outpatient COVID-19 test. Her primary care doctor told her to come here for her other conditions and ask for the COVID-19 test. Patient did not suffer any acute trauma or injury to her back. Patient denies any loss of bowel or bladder control. She does not have numbness in her feet. Timing/Duration: yesterday Method of Injury: bending, twisted, turning Quality: aching Back Pain Location: lumbar spine, paraspinous muscles Severity of Pain-Max: mild (To moderate) Severity of Pain-Current: mild (To moderate) Modifying Factors: Improves With: movement Associated Symptoms: lower back pain, No urinary incontinence, No loss of bowel control, No problems urinating, No sensory/motor loss, No tingling in legs/feet Previous symptoms: same symptoms as today Allergies/Adverse Reactions: alprazolam [From Xanax] Allergy (Verified 07/24/21 13:05) iron Allergy (Verified 07/24/21 13:05) Penicillins Allergy (Verified 07/24/21 13:05) erythromycin base Adverse Reaction (Verified 07/24/21 13:05) nausea Home Medications: Levothyroxine Sodium 88 mcg PO DAILY 01/19/15 [History] Omeprazole 40 mg PO DAILY 01/19/15 [History] Escitalopram Oxalate [Lexapro] 20 mg PO DAILY 11/01/19 [History] Gabapentin [Neurontin] 600 mg PO BID 09/29/20 [History] Indomethacin 25 mg [Indocin 25 MG] 25 mg PO TID PRN PRN 09/29/20 [History] Sumatriptan Succinate 25 mg [Imitrex 25 MG] 25 mg PO DAILY PRN PRN 09/29/20 [History] Lisinopril/Hydrochlorothiazide [Lisinopril-Hctz 10-12.5 mg Tab] 1 tab PO DAILY 05/09/21 [History] Hx Tetanus, Diphtheria Vaccination/Date Given: No Hx Influenza Vaccination/Date Given: No Hx Pneumococcal Vaccination/Date Given: No Immunizations Up to Date: No Travel Risk - International Travel Have you traveled outside of the country in past 3 weeks: No - Coronavirus Screening Are you exhibiting any of the following symptoms?: Yes Symptoms: Vomiting/Diarrhea Close contact with a COVID-19 positive Pt in past 14-21 Days: Yes - Vaccine Status Have you recieved a Covid-19 vaccination: No - Review of Systems Constitutional: No Symptoms Eyes: No Symptoms Ears, Nose, & Throat: Ear Pain (Left earache (inner)), Other (Bilateral outer ear itching and mild burning pain) Respiratory: No Symptoms Cardiac: No Symptoms Abdominal/Gastrointestinal: No Symptoms Genitourinary Symptoms: No Symptoms Musculoskeletal: Back Pain, No Fall, No Injury Skin: Pruritis (Dry external ears with skin flaking) Neurological: No No Symptoms Psychological: No No Symptoms Endocrine: No Symptoms Hematologic/Lymphatic: No Symptoms Immunological/Allergic: No Symptoms All Other Systems: Reviewed and Negative - Past Medical History Pertinent Past Medical History: Yes Neurological History: Migraines ENT History: No Pertinent History Cardiac History: High Cholesterol, Hypertension, Other Respiratory History: Asthma, Bronchitis Endocrine Medical History: Other Musculoskeletal History: Fibromyalgia GI Medical History: GERD, Irritable Bowel History: No Pertinent History Psycho-Social History: Anxiety, Depression, Other Female Reproductive Disorders: Menstrual Problems Other Medical History: PTSD, FIBRO - Past Surgical History Past Surgical History: Yes Neuro Surgical History: No Pertinent History Cardiac: No Pertinent History Respiratory: No Pertinent History Gastrointestinal: Cholecystectomy Genitourinary: No Pertinent History Musculoskeletal: No Pertinent History Female Surgical History: Hysterectomy, Tubal Ligation Other Surgical History: tyroidectomy - Social History Smoking Status: Never smoker Exposure to second hand smoke: No Drug Use: marijuana Patient Lives Alone: Yes - Female History Hx Now: No - Nursing Vital Signs Nursing Vital Signs: Initial Vital Signs Temperature 96.8 F 07/24/21 12:59 Pulse Rate 101 H 07/24/21 12:59 Respiratory Rate 18 07/24/21 12:59 Blood Pressure 123/96 07/24/21 12:59 O2 Sat by Pulse Oximetry 97 07/24/21 12:59 Pain Scale Pain Intensity [Lower Back] 9 Pain Intensity 9 - Physical Exam General Appearance: no apparent distress, alert, anxiety Eye Exam: PERRL/EOMI, eyes nml inspection Ears, Nose, Throat Exam: moist mucous membranes, TM abnormal (L) (Mild redness), other (Bilateral outer ears slightly red with skin dryness and flakiness) Neck Exam: normal inspection, non-tender, supple, full range of motion Respiratory Exam: airway intact, No chest tenderness, No respiratory distress Gastrointestinal Exam: No tenderness Pelvic Exam: not done Rectal Exam: not done Back Exam: normal inspection, normal range of motion, muscle spasm, No vertebral tenderness Extremity Exam: normal inspection, normal range of motion, pelvis stable Neurologic Exam: alert, oriented x 3, 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, 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, normal mood/affect, nml cerebellar function, nml station & gait, sensation nml Skin Exam: other (Psoriatic lesions bilateral outer ears (auricles)) Lymphatic Exam: No adenopathy SpO2 Interpretation: normal SpO2: 97 O2 Delivery: Room Air - Course Nursing assessment & vital signs reviewed: Yes Ordered Tests: Medication Summary Discontinued Medications Generic Name Dose Route Start Last Admin Trade Name Freq PRN Reason Stop Dose Admin Methylprednisolone Sodium 0 mg 07/24/21 13:32 Succinate 125 mg/ Sterile IM 07/24/21 13:33 Water 2 ml STAT ONE - Progress Progress: unchanged Counseled pt/family regarding: diagnosis, need for follow-up - Departure Departure Disposition: Home Clinical Impression: Acute exacerbation of chronic low back pain, Psoriasis Condition: Stable Critical Care Time: No Referrals: CHAPARRO DELGADO MD [Primary Care Provider] - Additional Instructions: Take your steroids and antibiotics as prescribed. Follow-up with Dr. Diehl for further management of your pain issues Prescriptions: Cefdinir 300 mg PO BID 7 Days #14 cap Prednisone 10 mg [Deltasone 10 mg] 10 mg PO TID #12 tablet
[2021-07-24] MEDS ORDERED: Sterile H2O 10 ml IJ ONE (13:53)
[2021-07-24] MEDS ORDERED: solu-MEDROL ONE (13:53)
[2021-07-24 14:10] VITALS: BP 124/84; PULSE 82; O2SAT 96
== END 2021-07-24 14:20 | disposition home or self-care (01) ==
LOC: ED 12:49
DX: M54.5 Low back pain (principal); L40.9 Psoriasis, unspecified
CPT/HCPCS: 96372; 99283; U0003; J2930

== ENCOUNTER 2021-08-21 11:25 | Day surgery (SDC) | payer OTHER ==
[2013-08-24 13:25] VITALS: BP 132/83
[2021-08-21] MEDS ORDERED: Sodium Chloride 0.9(Preservative Free) 10 ML IJ ONE (11:26)
[2021-08-21] MEDS ORDERED: Xylocaine 1% Vial 30 ML PF IJ ONE (11:26)
[2021-08-21] MEDS ORDERED: Depo-Medrol 40 MG/ML IM ONE (11:26)
[2021-08-21] MEDS ORDERED: DIPRIVAN 200 MG/20 ML IV ONE (12:48)
[2021-08-21] MEDS ORDERED: Lactated Ringers 1,000 ML IV ONE (16:14)
--- NOTE | 2021-08-22 11:19 | XRAY ---
13 seconds fluoroscopy time in surgery for lumbar PRINCESS.
--- NOTE | 2021-08-24 22:50 | XRAY ---
Indication: Lumbar PRINCESS. Intraoperative fluoroscopy was provided for 13 seconds. 2 digital spot images submitted for interpretation demonstrates a single needle tip projected over the posterior margin of the L5-S1 spinal sac in the midline. Some contrast has been injected for needle tip placement. Correlate with intraoperative findings/report.
== END 2021-08-21 13:15 | disposition home or self-care (01) ==
LOC: SDC-PAIN 11:25
PROVIDERS: ATTEND Psychiatry & Neurology Pain Medicine
DX: M54.16 Radiculopathy, lumbar region (principal); Z79.899 Other long term (current) drug therapy
CPT/HCPCS: 62323; 72100; 77003; J1030; J2001; J2704; Q9966

== ENCOUNTER 2021-10-02 11:29 | Emergency (ER) | payer OTHER ==
[2021-10-02 11:47] VITALS: O2SAT 96
[2021-10-02] MEDS ORDERED: CORTISPORIN EAR DROPS 10 ML SUSPENSION OT ONE ×2 (11:58→12:01)
[2021-10-02] MEDS ORDERED: TORAdol 30 mg Injection IM ONE (12:01)
--- NOTE | 2021-10-02 12:01 | ERPHSYRPT ---
- History of Present Illness Time Seen by Provider: 10/02/21 11:50 Source: patient Exam Limitations: no limitations Patient Subjective Stated Complaint: C/O bilateral ear pain. States right ear hurts more than the left ear. Indicates both ears are draining yellow/green this am. States hearing a "high-pitched" sound in her ears at time and that she has a decreased sense of hearing today. Triage Nursing Assessment: Patient ambulated back to ED. Patient is alert and oriented and able to answer questions appropriately. Both ears are red with a raised rash noted to exteral ear (patient indictes she has psoriasis). Ear canals swollen. Fluid noted in both ears. Patient grimacing when staff touch ears to examine them. Physician History: Patient is a 50-year-old female presents to our ED with bilateral ear pain. Right greater than left. Patient states her right ear has been draining yellow to greenish fluid. Patient admits to mildly decreased hearing acuity. Patient has history of psoriasis which involves bilateral ears. Patient admits to history of recurrent ear infection. Patient has been treated with oral antibiotics but states that in spite her ear infection continues to recur. Patient states due to psoriasis her ear is sensitive to eardrops. Patient symptoms are constant. Symptoms are mild to moderate in intensity. No specific worsening improving factors. No associated headache. No nausea or vomiting. No trauma. Patient voices no other complaints or concerns at this time. Timing/Duration: gradual onset Severity: moderate ENT Location: ear (R) Prearrival Treatment: no prearrival treatment Modifying Factors: Improves With: nothing Associated Symptoms: change in hearing, ear drainage, No cough, No fever, No chills, No drooling, No facial pain/swelling, No headache, No motion sickness, No nasal congestion/drainage Allergies/Adverse Reactions: alprazolam [From Xanax] Allergy (Verified 10/02/21 11:35) iron Allergy (Verified 10/02/21 11:35) Penicillins Allergy (Verified 10/02/21 11:35) erythromycin base Adverse Reaction (Verified 10/02/21 11:35) nausea Home Medications: Levothyroxine Sodium 88 mcg PO DAILY 01/19/15 [History] Omeprazole 40 mg PO DAILY 01/19/15 [History] Escitalopram Oxalate [Lexapro] 20 mg PO DAILY 11/01/19 [History] Gabapentin [Neurontin] 600 mg PO BID 10/31/20 [History] Indomethacin 25 mg [Indocin 25 MG] 25 mg PO TID PRN PRN 09/29/20 [History] Sumatriptan Succinate 25 mg [Imitrex 25 MG] 25 mg PO DAILY PRN PRN 09/29/20 [History] Lisinopril/Hydrochlorothiazide [Lisinopril-Hctz 10-12.5 mg Tab] 1 tab PO DAILY 05/09/21 [History] Hx Tetanus, Diphtheria Vaccination/Date Given: No Hx Influenza Vaccination/Date Given: No Hx Pneumococcal Vaccination/Date Given: No Immunizations Up to Date: Yes Travel Risk - International Travel Have you traveled outside of the country in past 3 weeks: No - Coronavirus Screening Are you exhibiting any of the following symptoms?: No Close contact with a COVID-19 positive Pt in past 14-21 Days: No - Vaccine Status Have you recieved a Covid-19 vaccination: Yes 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[employer]: [employer] - Vaccination Dates Date of 2cond Vaccination (if applicable): 09-30-21 - Review of Systems Constitutional: No Symptoms, No Fever, No Chills Eyes: No Symptoms Ears, Nose, & Throat: No Symptoms Respiratory: No Symptoms, No Cough, No Dyspnea Cardiac: No Symptoms, No Chest Pain, No Edema, No Syncope Abdominal/Gastrointestinal: No Symptoms, No Abdominal Pain, No Nausea, No Vomiting, No Diarrhea Genitourinary Symptoms: No Symptoms, No Dysuria Musculoskeletal: No Symptoms, No Back Pain, No Neck Pain Skin: No Symptoms, No Rash Neurological: No Symptoms, No Dizziness, No Focal Weakness, No Sensory Changes Psychological: No Symptoms Endocrine: No Symptoms Hematologic/Lymphatic: No Symptoms Immunological/Allergic: No Symptoms All Other Systems: Reviewed and Negative - Past Medical History Pertinent Past Medical History: Yes Neurological History: Migraines ENT History: No Pertinent History Cardiac History: High Cholesterol, Hypertension, Other Respiratory History: Asthma, Bronchitis Endocrine Medical History: Other Musculoskeletal History: Fibromyalgia GI Medical History: GERD, Irritable Bowel History: No Pertinent History Psycho-Social History: Anxiety, Depression, Other Female Reproductive Disorders: Menstrual Problems Other Medical History: PTSD, FIBRO - Past Surgical History Past Surgical History: Yes Neuro Surgical History: No Pertinent History Cardiac: No Pertinent History Respiratory: No Pertinent History Gastrointestinal: Cholecystectomy Genitourinary: No Pertinent History Musculoskeletal: No Pertinent History Female Surgical History: Hysterectomy, Tubal Ligation Other Surgical History: tyroidectomy - Social History Smoking Status: Never smoker Exposure to second hand smoke: No Drug Use: marijuana Patient Lives Alone: Yes - Female History Hx Now: No - Nursing Vital Signs Nursing Vital Signs: Initial Vital Signs Temperature 97.1 F 10/02/21 11:39 Pulse Rate 83 10/02/21 11:39 Respiratory Rate 20 10/02/21 11:39 Blood Pressure 121/82 10/02/21 11:39 O2 Sat by Pulse Oximetry 96 10/02/21 11:39 Pain Scale Pain Intensity 8 - Physical Exam General Appearance: no apparent distress, alert Eye Exam: bilateral eye: normal inspection, PERRL, EOMI Ear Exam: bilateral ear: swelling (Right ear canal is swollen shut with some drainage observed coming through the narrowing. Left ear canal is mildly swollen however not completely shut. The auricle of both ear appears to have dry skin bilaterally.), other (No mastoid tenderness) Nasal Exam: normal inspection Throat Exam: pharynx normal, moist mucus membranes, No tonsillar exudate Neck Exam: supple Cardiovascular/Respiratory Exam: normal breath sounds, regular rate/rhythm, heart sounds normal Abdominal Exam: non-tender, soft Neurologic Exam: alert, oriented x 3, sensation nml, No motor deficits Skin Exam: normal color, warm, dry SpO2 Interpretation: normal SpO2: 96 O2 Delivery: Room Air - Course Nursing assessment & vital signs reviewed: Yes Ordered Tests: Medication Summary Discontinued Medications Generic Name Dose Route Start Last Admin Trade Name Johannq PRN Reason Stop Dose Admin Ketorolac Tromethamine 30 mg 10/02/21 12:01 Ketorolac Tromethamine 30 Mg/Ml Inj IM 10/02/21 12:02 STAT ONE Ketorolac Tromethamine Confirm 10/02/21 12:02 Ketorolac Tromethamine 30 Mg/Ml Inj Administered 10/02/21 12:03 Dose 30 mg .ROUTE .STK-MED ONE Neomycin/Polymyxin/Hydrocortisone Confirm 10/02/21 11:58 Neomy Sulf/Polymyx B Sulf/Hc 10 Ml Otic Suspension Administered 10/02/21 11:59 Dose 10 ml OT .STK-MED ONE Neomycin/Polymyxin/Hydrocortisone 5 ml 10/02/21 12:01 10/02/21 12:03 Neomy Sulf/Polymyx B Sulf/Hc 10 Ml Otic Suspension OT 10/02/21 12:02 5 ml STAT ONE Administration - Progress Progress: improved Progress Note: Patient reassessed. She feels better. We placed a ear wick in her right ear and infused with Cortisporin otic. The same was applied to the contralateral ear. A prescription for Ciprodex for the patient's pharmacy. Patient states he is ready for discharge. Patient received a dose of intramuscular Toradol for pain control. Patient agrees to follow-up with her primary care doctor tomorrow as scheduled. Patient voices no other complaints or concerns at this time. Portions of this note were created with voice recognition technology. There may be grammatical, spelling, punctuation or sound alike errors 10/02/21 12:14 Counseled pt/family regarding: diagnosis, need for follow-up - Departure Departure Disposition: Home Clinical Impression: Otitis externa bilaterally Condition: Stable Critical Care Time: No Referrals: CHAPARRO DELGADO MD [Primary Care Provider] - Follow up/PCP as directed Additional Instructions: Discharge/Care Plan QUOCTIFFANY HOLLY was seen on 10/02/21 in the Emergency Room. The patient was counseled regarding Diagnosis,Lab results, Imaging studies, need for follow up and when to return to the Emergency Room. Prescriptions given: Discharge Note I have spoken with the patient and/or caregivers. I have explained the patient's condition, diagnosis and treatment plan based on the information available to me at this time. I have answered the patient's and/or caregiver's questions and addressed any concerns. The patient and/or caregivers have as good understanding of the patient's diagnosis, condition and treatment plan as can be expected at this point. The vital signs have been stable. The patient's condition is stable and appropriate for discharge from the emergency department. The patient will pursue further outpatient evaluation with the primary care physician or other designated or consulting physician as outlined in the discharge instructions. The patient and/or caregivers are agreeable to this plan of care and follow-up instructions have been explained in detail. The patient and/or caregivers have received these instruction. The patient/and or caregivers are aware that any significant change in condition or worsening of symptoms should prompt an immediate return to this or the closest emergency department or call 911. Prescriptions: Ciprofloxacin HCl/Dexameth [Ciprodex Otic Suspension] 3 drop OT TID #7.5 ml
[2021-10-02] MEDS ORDERED: TORAdol 30 mg Injection ONE (12:02)
[2021-10-02 12:15] VITALS: BP 112/71; PULSE 72
== END 2021-10-02 12:24 | disposition home or self-care (01) ==
LOC: ED 11:29
DX: H60.93 Unspecified otitis externa, bilateral (principal)
CPT/HCPCS: 96372; 99283; J1885; A9270-GY

== ENCOUNTER 2021-10-07 04:37 | Emergency (ER) | payer OTHER ==
[2013-08-24 13:25] VITALS: BP 132/83
[2021-10-07] MEDS ORDERED: TORAdol 30 mg Injection IM ONE (05:09)
[2021-10-07] MEDS ORDERED: Norflex 60 MG/2 ML IM ONE (05:10)
[2021-10-07] MEDS ORDERED: TORAdol 30 mg Injection ONE (05:10)
[2021-10-07] MEDS ORDERED: Norflex 60 MG/2 ML ONE (05:10)
[2021-10-07] MEDS ORDERED: Hydromorphone 1 mg/ml Injection IM ONE (06:54)
[2021-10-07] MEDS ORDERED: Hydromorphone 1 mg/ml Injection ONE (06:56)
--- NOTE | 2021-10-07 06:57 | ERPHSYRPT ---
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 Triage Nursing Assessment: pt alert and oriented, answers questions approp. pt arrive per ambuance and transfers to stretcher with assist of 3. pt rubbing at lower back. states pain is worse on lt side. reports tenderness to lt lower back. pedal pulses and cap refill to bilat lower ext wnl. pt denies incont of bowel or bladder. Physician History: 50 years old female presented to the ER with chief complaint of sudden onset low back pain after she bent over to pick some stuff from the floor. Patient reports pain across lower back and sacroiliac area bilaterally with some radiation to the upper buttocks, moderate to severe intensity, sharp throbbing, aggravated with activity and better with resting. Denies any numbness tingling weakness of lower extremities or loss of bowel or bladder control. Does have history of chronic back pain in the past with similar symptoms. Timing/Duration: yesterday, sudden, worse Method of Injury: bending Quality: sharp, throbbing Back Pain Location: paraspinous muscles Back Pain Radiation: buttocks Severity of Pain-Max: severe Severity of Pain-Current: moderate Modifying Factors: Improves With: rest. Worsens With: movement Associated Symptoms: lower back pain, muscle spasms, No weakness, No sensory/motor loss, No tingling in legs/feet Previous symptoms: same symptoms as today Allergies/Adverse Reactions: alprazolam [From Xanax] Allergy (Verified 10/07/21 04:53) iron Allergy (Verified 10/07/21 04:53) Penicillins Allergy (Verified 10/07/21 04:53) erythromycin base Adverse Reaction (Verified 10/07/21 04:53) nausea Home Medications: Levothyroxine Sodium 88 mcg PO DAILY 01/19/15 [History] Omeprazole 40 mg PO DAILY 01/19/15 [History] Escitalopram Oxalate [Lexapro] 20 mg PO DAILY 11/01/19 [History] Gabapentin [Neurontin] 600 mg PO BID 09/29/20 [History] Indomethacin 25 mg [Indocin 25 MG] 25 mg PO TID PRN PRN 09/29/20 [History] Sumatriptan Succinate 25 mg [Imitrex 25 MG] 25 mg PO DAILY PRN PRN 09/29/20 [History] Lisinopril/Hydrochlorothiazide [Lisinopril-Hctz 10-12.5 mg Tab] 1 tab PO DAILY 05/09/21 [History] Duloxetine HCl 30 mg [Cymbalta 30 MG Capsule] 30 mg PO DAILY 10/07/21 [History] Hx Tetanus, Diphtheria Vaccination/Date Given: Yes Hx Influenza Vaccination/Date Given: Yes Hx Pneumococcal Vaccination/Date Given: No Immunizations Up to Date: Yes Travel Risk - International Travel Have you traveled outside of the country in past 3 weeks: No - Coronavirus Screening Are you exhibiting any of the following symptoms?: No Close contact with a COVID-19 positive Pt in past 14-21 Days: No - Vaccine Status Have you recieved a Covid-19 vaccination: Yes 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[employer] - Vaccination Dates Date of 2cond Vaccination (if applicable): aug 2021 - Review of Systems Constitutional: No Symptoms Eyes: No Symptoms Respiratory: No Symptoms Cardiac: No Symptoms Abdominal/Gastrointestinal: No Symptoms Genitourinary Symptoms: No Symptoms Musculoskeletal: Back Pain Skin: No Symptoms Neurological: No Symptoms Psychological: No Symptoms Endocrine: No Symptoms Hematologic/Lymphatic: No Symptoms - Past Medical History Pertinent Past Medical History: Yes Neurological History: Migraines ENT History: No Pertinent History Cardiac History: High Cholesterol, Hypertension, Other Respiratory History: Asthma, Bronchitis Endocrine Medical History: Other Musculoskeletal History: Fibromyalgia, Osteoarthritis GI Medical History: GERD, Irritable Bowel History: No Pertinent History Psycho-Social History: Anxiety, Depression, Other Female Reproductive Disorders: Menstrual Problems Other Medical History: PTSD, FIBRO, psoriasis, thyroid ca - Past Surgical History Past Surgical History: Yes Neuro Surgical History: No Pertinent History Cardiac: No Pertinent History Respiratory: No Pertinent History Gastrointestinal: Cholecystectomy Genitourinary: No Pertinent History Musculoskeletal: No Pertinent History Female Surgical History: Hysterectomy, Tubal Ligation Other Surgical History: thyroidectomy - Social History Smoking Status: Never smoker Exposure to second hand smoke: No Drug Use: marijuana Patient Lives Alone: Yes - Female History Hx Last Menstrual Period: hyster Hx Now: No - Nursing Vital Signs Nursing Vital Signs: Initial Vital Signs Temperature 97.6 F 10/07/21 04:40 Pulse Rate 76 10/07/21 04:40 Respiratory Rate 18 11/08/21 04:40 Blood Pressure 156/85 10/07/21 04:40 O2 Sat by Pulse Oximetry 97 10/07/21 04:40 Pain Scale Pain Intensity [Back] 8 Pain Intensity 4 - Physical Exam General Appearance: no apparent distress Eye Exam: PERRL/EOMI Neck Exam: normal inspection, non-tender, supple, full range of motion Respiratory Exam: normal breath sounds, lungs clear Cardiovascular Exam: regular rate/rhythm, normal heart sounds Gastrointestinal Exam: soft, normal bowel sounds, No tenderness Back Exam: normal inspection, decreased range of motion, muscle spasm, other (Bilateral sacroiliac area and lumbar paraspinal area muscle spasm/tenderness. Straight leg raising test positive at 60 bilaterally), No vertebral tenderness Extremity Exam: normal inspection, normal range of motion, pelvis stable Neurologic Exam: alert, oriented x 3, cooperative, beam doffer II-XII nml as tested Skin Exam: normal color SpO2 Interpretation: normal SpO2: 94 O2 Delivery: Room Air Ordered Tests: Medication Summary Discontinued Medications Generic Name Dose Route Start Last Admin Trade Name Johannq PRN Reason Stop Dose Admin Hydromorphone HCl 1 mg 10/07/21 06:54 10/07/21 06:57 Hydromorphone 1 Mg/1ml Inj 1 Mg/Ml Syringe IM 10/07/21 06:55 1 mg STAT ONE Administration Hydromorphone HCl Confirm 10/07/21 06:56 Hydromorphone 1 Mg/1ml Inj 1 Mg/Ml Syringe Administered 10/07/21 06:57 Dose 1 mg .ROUTE .STK-MED ONE Ketorolac Tromethamine 30 mg 10/07/21 05:09 10/07/21 05:14 Ketorolac Tromethamine 30 Mg/Ml Inj IM 10/07/21 05:10 30 mg STAT ONE Administration Ketorolac Tromethamine Confirm 10/07/21 05:10 Ketorolac Tromethamine 30 Mg/Ml Inj Administered 10/07/21 05:11 Dose 30 mg .ROUTE .STK-MED ONE Orphenadrine Citrate 60 mg 10/07/21 05:10 10/07/21 05:14 Orphenadrine Citrate 60 Mg/2 Ml Amp IM 10/07/21 05:11 60 mg STAT ONE Administration Orphenadrine Citrate Confirm 10/07/21 05:10 Orphenadrine Citrate 60 Mg/2 Ml Amp Administered 10/07/21 05:11 Dose 60 mg .ROUTE .STK-MED ONE - Progress Progress: improved, pain not gone completely Progress Note: 10/07/21. She is given symptomatic treatment for pain, negative neuro exam in lower extremities. No definite midline tenderness but more on the paraspinal area. Similar to previous episodes. Do not think needs imaging and I think she has a lumbar paraspinals strain, recommended muscle relaxants and pain medications. Outpatient follow-up recommended. Discussed signs symptoms of worsening needing return to ER which she seems understanding. Stable for discharge. Counseled pt/family regarding: diagnosis, need for follow-up - Departure Departure Disposition: Home Clinical Impression: Acute exacerbation of chronic low back pain Condition: Stable Critical Care Time: No Referrals: CHAPARRO DELGADO MD [Primary Care Provider] - Follow up/PCP as directed BOGDAN YEE MD [CONSULTING PHYSICIAN] - Follow up/PCP as directed (Call today for appointment for reevaluation) Instructions: Low Back Pain (DC), Sciatica (DC) Additional Instructions: Continue with indomethacin and gabapentin which you are on. Follow-up with your primary care and pain management for reevaluation. Return to ER for intractable low back pain, numbness tingling weakness of lower extremities/loss of bowel or bladder control. Prescriptions: Tizanidine HCl 4 mg [Zanaflex 4 MG] 4 mg PO TID PRN 30 Days #60 tablet PRN Reason: Pain
== END 2021-10-07 07:24 | disposition home or self-care (01) ==
LOC: ED 04:37
DX: M54.50 Low back pain, unspecified (principal); M62.830 Muscle spasm of back; Z79.899 Other long term (current) drug therapy
CPT/HCPCS: 96372; 99284; J1170; J1885; J2360

== ENCOUNTER 2021-10-30 14:23 | Day surgery (SDC) | payer OTHER ==
[2013-08-24 13:25] VITALS: BP 132/83
[2021-10-30] MEDS ORDERED: Xylocaine 1% Vial 30 ML PF IJ ONE (14:24)
[2021-10-30] MEDS ORDERED: Depo-Medrol 40 MG/ML IM ONE (14:24)
[2021-10-30] MEDS ORDERED: BUPIVACAINE 0.5% VIAL IJ ONE (14:24)
[2021-10-30] MEDS ORDERED: Lactated Ringers 1,000 ML IV ONE (16:08)
[2021-10-30] MEDS ORDERED: DIPRIVAN 200 MG/20 ML IV ONE (17:25)
--- NOTE | 2021-10-30 22:03 | XRAY ---
Indication: Lumbar PRINCESS. Intraoperative fluoroscopy provided for 15 seconds. 2 digital spot image submitted for interpretation demonstrates midline posterior needle tip projecting just posterior to the lumbosacral interspace. Small amount of contrast injected for needle tip placement. Correlate with intraoperative findings/report.
--- NOTE | 2021-10-31 09:03 | XRAY ---
15 seconds fluoroscopy time in surgery for lumbar PRINCESS.
== END 2021-10-30 17:50 | disposition home or self-care (01) ==
LOC: SDC-PAIN 14:23
PROVIDERS: ATTEND Psychiatry & Neurology Pain Medicine
DX: M54.16 Radiculopathy, lumbar region (principal); D64.9 Anemia, unspecified; F41.9 Anxiety disorder, unspecified; F32.9 Major depressive disorder, single episode, unspecified; Z79.899 Other long term (current) drug therapy
CPT/HCPCS: 62323; 72100; 77003; J1030; J2001; J2704; Q9966

== ENCOUNTER 2021-11-09 23:24 | Emergency (ER) | payer OTHER ==
[2021-11-09] MEDS ORDERED: Pepcid 20 MG VIAL IV ONE (23:53)
[2021-11-09] MEDS ORDERED: BABY ASPIRIN 81 MG CHEW PO ONE (23:53)
[2021-11-09] MEDS ORDERED: GI COCKTAIL 45 ML (Maalox/Lidocaine) PO ONE (23:54)
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
[2021-11-10] MEDS ORDERED: BABY ASPIRIN 81 MG CHEW ONE (00:24)
[2021-11-10] MEDS ORDERED: Pepcid 20 MG VIAL IV ONE (00:24)
[2021-11-10] MEDS ORDERED: MAALOX ES 30 ML UNIT DOSE ONE (00:25)
[2021-11-10] MEDS ORDERED: XYLOCAINE HCl Viscous ONE (00:25)
[2021-11-10 00:37] LABS: Absolute Neutrophil Ct (ANC) 9.34 (1.4-6.9); BASOPHIL % 0.3 % (0.0-0.4); Basophil (Absolute #) 0.04 (0-0.4); Eosinophil % 1.7 % (0.00-5.0); Eosinophil (Absolute #) 0.23 (0-0.5); Hematocrit 43.8 % (35-47); Hemoglobin 14.6 gm/dl (12.0-16.0); Lymphocyte (Absolute #) 3.08 (1.0-4.6); Lymphocytes % 22.4 % (24.0-44.0); Mean Cell Volume 95.4 fl (78-100); Mean Corpuscular Hemoglobin 31.8 pg (26-32); Mean Corpuscular Hgb Concent. 33.3 g/dl (32-36); Mean Platelet Volume 11.2 fl (7.5-11.0); Monocyte (Absolute #) 1.05 (0.0-1.3); Monocytes % 7.6 % (0.0-12.0); Platelet Count 299 K/mm3 (150-450); Red Blood Count 4.59 M/mm3 (4.1-5.4); Red Cell Distribution Width 12.5 % (11.5-14.0); White Blood Count 13.7 K/mm3 (4.0-10.5)
[2021-11-10 00:50] LABS: ALBUMIN 4.6 g/dL (3.5-5.0); ALKALINE PHOSPHATASE 78 U/L (38-126); ANION GAP 13.2 MEQ/L (5-15); BLOOD UREA NITROGEN 22 mg/dL (7-17); CHLORIDE 98 mmol/L (98-107); Calcium 9.7 mg/dL (8.4-10.2); Carbon Dioxide 32 mmol/L (22-30); Creatinine 1 0.66 mg/dL (0.52-1.04); EST GLOMERULAR FILTRATION RATE > 60.0 ML/MIN; Glucose 94 mg/dL (74-106); Potassium 3.9 mmol/L (3.5-5.1); SGOT/AST 22 U/L (14-36); SGPT/ALT 22 U/L (0-35); SODIUM 139 mmol/L (137-145); Total Protein 7.8 g/dL (6.3-8.2)
[2021-11-10 00:55] LABS: Amphetamine,Urine NEGATIVE (NEGATIVE); Barbiturate,Urine NEGATIVE (NEGATIVE); Benzodiazepine,Urine NEGATIVE (NEGATIVE); Cocaine,Urine NEGATIVE (NEGATIVE); Methadone,Urine NEGATIVE (NEGATIVE); Opiate,Urine NEGATIVE (NEGATIVE); PCP,Urine NEGATIVE (NEGATIVE); THC,Urine POSITIVE (NEGATIVE)
[2021-11-10 01:47] VITALS: O2SAT 98
[2021-11-10] MEDS ORDERED: Zofran 4 MG/2 ML VIAL IV ONE (02:04)
[2021-11-10] MEDS ORDERED: Zofran 4 MG/2 ML VIAL ONE (02:05)
[2021-11-10 02:23] VITALS: BP 110/80; PULSE 87
--- NOTE | 2021-11-10 08:47 | XRAY ---
Indication: Chest pain. Comparison: May 22, 2021. Portable apical lordotic chest again demonstrates normal heart, lungs, and bony thorax.
== END 2021-11-10 02:21 | disposition home or self-care (01) ==
LOC: ED 23:24
DX: F41.0 Panic disorder [episodic paroxysmal anxiety] (principal); K21.00 Gastro-esophageal reflux disease with esophagitis, without bleeding; R51.9 Headache, unspecified; R07.9 Chest pain, unspecified; R06.02 Shortness of breath; I10 Essential (primary) hypertension; E78.5 Hyperlipidemia, unspecified
CPT/HCPCS: 36000; 36415; 71045; 80053; 80307; 84484; 85025; 93005; 93041; 96374; 96375; 99284; J2405; A9270-GY

== ENCOUNTER 2022-03-19 11:11 | Day surgery (SDC) | payer OTHER ==
[2013-08-24 13:25] VITALS: BP 132/83
[2022-03-19] MEDS ORDERED: Sodium Chloride 0.9(Preservative Free) 10 ML IJ ONE (11:12)
[2022-03-19] MEDS ORDERED: Xylocaine 1% Vial 30 ML PF IJ ONE (11:12)
[2022-03-19] MEDS ORDERED: Depo-Medrol 40 MG/ML IM ONE (11:12)
[2022-03-19] MEDS ORDERED: Lactated Ringers 1,000 ML IV ONE (13:49)
[2022-03-19] MEDS ORDERED: DIPRIVAN 200 MG/20 ML IV ONE ×2 (13:58→14:43)
[2022-03-19] MEDS ORDERED: Versed 2 MG/2 ML Injection ONE (14:33)
[2022-03-19] MEDS ORDERED: Proair Hfa MDI IH ONE (14:43)
--- NOTE | 2022-03-19 15:10 | XRAY ---
21 seconds fluoroscopy time in surgery for lumbar PRINCESS.
--- NOTE | 2022-03-19 15:11 | XRAY ---
Indication: Lumbar PRINCESS. Intraoperative fluoroscopy provided for 21 seconds. 2 digital spot image submitted for interpretation demonstrates midline posterior needle tip projecting just posterior to L5-S1 interspace. Small amount of contrast injected for needle tip placement. Correlate with intraoperative findings/report.
== END 2022-03-19 15:30 | disposition home or self-care (01) ==
LOC: SDC-PAIN 11:11
PROVIDERS: ATTEND Psychiatry & Neurology Pain Medicine
DX: M54.16 Radiculopathy, lumbar region (principal); Z79.899 Other long term (current) drug therapy
CPT/HCPCS: 62323; 72100; 77003; J1030; J2001; J2250; J2704; Q9966; A9270-GY

== ENCOUNTER 2023-01-07 11:30 | Day surgery (SDC) | payer OTHER ==
[2013-08-24 13:25] VITALS: BP 132/83
[2023-01-07] MEDS ORDERED: Lactated Ringers 1,000 ML IV ONE (11:31)
[2023-01-07] MEDS ORDERED: Pepcid 20 MG VIAL IV ONE (13:04)
[2023-01-07] MEDS ORDERED: Reglan 10 MG/2 ML ONE (13:04)
[2023-01-07] MEDS ORDERED: Zofran 4 MG/2 ML VIAL ONE (13:04)
[2023-01-07] MEDS ORDERED: Versed 2 MG/2 ML Injection ONE ×2 (14:16→14:24)
--- NOTE | 2023-01-07 16:31 | XRAY ---
Indication: Left shoulder injection. Intraoperative fluoroscopy provided for 23 seconds. 3 digital spot image submitted for interpretation demonstrates needle tip projecting over the left glenohumeral joint superiorly. Small amount of contrast injected for needle tip placement. Correlate with intraoperative findings/report.
--- NOTE | 2023-01-07 16:42 | XRAY ---
23 seconds fluoroscopy time in surgery for intra-articular and subacromial injections of the left shoulder.
== END 2023-01-07 14:55 | disposition home or self-care (01) ==
LOC: SDC-PAIN 11:30
PROVIDERS: ATTEND Psychiatry & Neurology Pain Medicine
DX: M19.012 Primary osteoarthritis, left shoulder (principal); M75.52 Bursitis of left shoulder; Z79.899 Other long term (current) drug therapy
CPT/HCPCS: 20610; 73030; 77002; 82947; J2250; J2405; Q9966